=== PATIENT | male | born 1945 | race Caucasian/White ===

== ENCOUNTER 2018-11-06 10:07 | Day surgery (SDC) | payer BC ==
[~2018-11-06] VITALS: Ht 160 cm; Wt 85.3 kg
[2018-11-06] MEDS ORDERED: ASPIRIN (10:48)
[2018-11-06] MEDS ORDERED: DIURETIC (10:48)
[2018-11-06] MEDS ORDERED: ATENOLOL (10:48)
[2018-11-06 10:49] VITALS: Ht 160 cm; Wt 85.3 kg
--- NOTE | 2018-11-06 11:08 | PREAC ---
Date/Time of Note Date/Time of Note DATE: 11/06/18 TIME: 11:06 Anesthesia Eval and Record Evaluation Time Pre-Procedure Interview DATE: 11/06/18 TIME: 11:06 Age 73 Sex male NPO: 8 hrs Preoperative diagnosis GERD Planned procedure EGD possible biopsy Past Medical History Past Medical History: Includes Cardio: HTN, Dyslipidemia Pulm: Sleep Apnea (never had sleep study, thick neck, obese) GI: Obesity (bmi 33) Surgery & Anesthesia Issues No known issue Meds Anticoagulation: Yes (ASA 81 mg 2 days ago ) Beta Cassandra within 24 hr: Yes Reported Medications [Aspirin] No Conflict Check 11/06/18 [Diuretic] No Conflict Check 11/06/18 [Atenolol] No Conflict Check 11/06/18 Meds reviewed: Yes Allergies Coded Allergies: No Known Allergy (Unverified , 11/06/18) Allergies Reviewed: Yes Labs/Studies Labs Reviewed: Reviewed by anesthesiologist (n/a) test: N/A Pre-procedure Exam Airway: Adequate mouth opening, Adequate thyromental dist Mallampati: Mallampati II Teeth: Normal Lung: Normal Heart: Normal ASA Physical Status ASA physical status: 2 Emergency: None Planned Anesthetic General/MAC: MAC Planned Pain Management Parenteral pain med Pre-operative Attestations Prior to commencing anesthesia and surgery, the patient was re-evaluated, there was verification of: *The patient's identity *The results of appropriate recent lab work and preoperative vital signs *The above evaluation not changing prior to induction *Anesthetic plan, risk benefits, alternative and complications discussed with patient/family; questions answered; patient/family understands, accepts and wishes to proceed. ROMARIO BANUELOS Nov 06, 2018 11:08
[2018-11-06 11:15] VITALS: BP 132/71; PULSE 80; RESP 19
[2018-11-06] MEDS ORDERED: PROPOFOL 20 ML ONE (11:48)
[2018-11-06 12:04] VITALS: BP 104/61; PULSE 72; RESP 20
[2018-11-06 12:10] VITALS: BP 114/65; PULSE 66; RESP 15
[2018-11-06 12:16] VITALS: BP 116/68; PULSE 64; RESP 19
--- NOTE | 2018-11-06 12:29 | PAC ---
Date/Time of Note Date/Time of Note DATE: 11/06/18 TIME: 12:27 Post-Anesthesia Notes Post-Anesthesia Note Last documented vital signs Vital Signs Date Temp Pulse Resp B/P (MAP) Pulse Ox O2 O2 Flow FiO2 Time Delivery Rate 11/06/18 97.1 80 19 132/71 95 Room Air 11:15 (91) Activity: WNL Respiratory function: WNL Cardiovascular function: WNL Mental status: Baseline Pain reasonably controlled: Yes Hydration appropriate: Yes Nausea/Vomiting absent: Yes Comments BP: 116/68 HR: 87 RR: 15 T: 98 SaO2: 97% NORMAN DESOUZA MD Nov 06, 2018 12:28
== END 2018-11-06 12:30 | disposition home or self-care (01) ==
LOC: GIL 10:07
PROVIDERS: ATTEND Internal Medicine Gastroenterology
DX: K29.50 Unspecified chronic gastritis without bleeding (principal); K20.8 Other esophagitis
CPT/HCPCS: 43239; 88305; 88312; Z7610